=== PATIENT | male | born 1940 | race Caucasian/White ===

== ENCOUNTER → 2016-11-19 | Outpatient (CLI) | payer OTHER, BC ==
[2016-11-19 13:13] LABS: BILIRUBIN,TOTAL 0.8 mg/dL (0.3-1.2); CALCIUM 9.5 mg/dL (8.7-10.7); POTASSIUM 4.1 meq/L (3.8-5.2); TOTAL PROTEIN 6.7 g/dL (6.1-8.0)
== END ==
LOC: LAB 12:38
PROVIDERS: ATTEND Internal Medicine
DX: D45 Polycythemia vera (principal)
CPT/HCPCS: 36415; 80053

== ENCOUNTER → 2016-11-20 | Outpatient (CLI) | payer OTHER, BC ==
[2016-11-20 10:50] LABS: BASOPHILS % (AUTO) 0.8 % (0-1); EOSINOPHILS % (AUTO) 1.8 % (0-8); HEMATOCRIT 47.8 % (42.0-52.0); HEMOGLOBIN 16.3 g/dL (14.0-18.0); IMM GRAN % (AUTO) 0.3 % (0-5); IMM GRAN# (AUTO) 0.04 10*3/UL; LYMPHOCYTES # (AUTO) 2.14 10*3/uL; LYMPHOCYTES % (AUTO) 18.1 % (10-50); MEAN CORPUSCULAR HEMOGLOBIN 32.8 PG (27-31); MEAN CORPUSCULAR HGB CONC 34.1 g/dL (33-37); MEAN PLATELET VOLUME 9.9 FL (7.4-12.2); MONOCYTES # (AUTO) 0.99 10*3/UL (0.3-0.8); MONOCYTES % (AUTO) 8.4 % (5-15); NEUTROPHILS # (AUTO) 8.35 10*3/UL; NEUTROPHILS % (AUTO) 70.6 % (50-80); RDW COEFFICIENT OF VARIATION 15.9 % (11.5-14.5); RED BLOOD COUNT 4.97 10^6/uL (4.70-6.10); WHITE BLOOD COUNT 11.83 10^3/uL (4.8-10.8)
[2016-11-20 10:52] LABS: PLATELET MORPHOLOGY COMMENT NORMAL MORPHOLOGY (NORM)
== END ==
LOC: LAB 10:34
PROVIDERS: ATTEND Internal Medicine
DX: D45 Polycythemia vera (principal)
CPT/HCPCS: 36415; 85025

== ENCOUNTER → 2017-01-15 | Outpatient (CLI) | payer OTHER, BC ==
[2017-01-15 12:47] LABS: BASOPHILS % (AUTO) 0.9 % (0-1); EOSINOPHILS % (AUTO) 1.5 % (0-8); HEMATOCRIT 46.1 % (42.0-52.0); HEMOGLOBIN 15.7 g/dL (14.0-18.0); IMM GRAN % (AUTO) 0.4 % (0-5); IMM GRAN# (AUTO) 0.04 10*3/UL; LYMPHOCYTES # (AUTO) 1.94 10*3/uL; LYMPHOCYTES % (AUTO) 17.9 % (10-50); MEAN CORPUSCULAR HEMOGLOBIN 32.8 PG (27-31); MEAN CORPUSCULAR HGB CONC 34.1 g/dL (33-37); MEAN PLATELET VOLUME 9.6 FL (7.4-12.2); MONOCYTES % (AUTO) 6.5 % (5-15); NEUTROPHILS # (AUTO) 7.91 10*3/UL; NEUTROPHILS % (AUTO) 72.8 % (50-80); RDW COEFFICIENT OF VARIATION 16.6 % (11.5-14.5); RED BLOOD COUNT 4.78 10^6/uL (4.70-6.10); WHITE BLOOD COUNT 10.85 10^3/uL (4.8-10.8)
[2017-01-15 12:57] LABS: PLATELET MORPHOLOGY COMMENT NORMAL MORPHOLOGY (NORM)
== END ==
LOC: LAB 12:30
PROVIDERS: ATTEND Internal Medicine
DX: D45 Polycythemia vera (principal)
CPT/HCPCS: 36415; 82565; 85025

== ENCOUNTER → 2017-02-10 | Outpatient (CLI) | payer OTHER, BC | LOC: MMPC 09:00 | PROVIDERS: ATTEND Family Medicine | DX: E04.1 Nontoxic single thyroid nodule (principal); E78.5 Hyperlipidemia, unspecified; D72.829 Elevated white blood cell count, unspecified; D45 Polycythemia vera | CPT/HCPCS: 99213; G0463 ==

== ENCOUNTER → 2017-03-18 | Outpatient (CLI) | payer OTHER, BC ==
[2017-03-18 15:49] LABS: BASOPHILS % (AUTO) 0.9 % (0-1); EOSINOPHILS # (AUTO) 0.21 10*3/UL; EOSINOPHILS % (AUTO) 1.8 % (0-8); HEMATOCRIT 45.5 % (42.0-52.0); HEMOGLOBIN 15.4 g/dL (14.0-18.0); LYMPHOCYTES # (AUTO) 2.07 10*3/uL; MEAN CORPUSCULAR HEMOGLOBIN 32.8 PG (27-31); MEAN CORPUSCULAR HGB CONC 33.8 g/dL (33-37); MEAN PLATELET VOLUME 9.4 FL (7.4-12.2); MONOCYTES # (AUTO) 0.77 10*3/UL (0.3-0.8); MONOCYTES % (AUTO) 6.7 % (5-15); NEUTROPHILS # (AUTO) 8.32 10*3/UL; NEUTROPHILS % (AUTO) 72.3 % (50-80); RED BLOOD COUNT 4.69 10^6/uL (4.70-6.10)
[2017-03-18 16:07] LABS: PLATELET MORPHOLOGY COMMENT NORMAL MORPHOLOGY (NORM); RBC MORPHOLOGY COMMENT NORMAL MORPHOLOGY (NORM); WBC MORPHOLOGY COMMENT NORMAL MORPHOLOGY (NORM)
== END ==
LOC: LAB 15:32
PROVIDERS: ATTEND Internal Medicine
DX: D45 Polycythemia vera (principal)
CPT/HCPCS: 36415; 82565; 85025

== ENCOUNTER → 2017-03-27 | Outpatient (CLI) | payer OTHER, BC ==
[2017-03-27 08:05] LABS: BASOPHILS # (AUTO) 0.11 10*3/UL; BASOPHILS % (AUTO) 1.1 % (0-1); EOSINOPHILS # (AUTO) 0.19 10*3/UL; EOSINOPHILS % (AUTO) 1.8 % (0-8); HEMATOCRIT 48.1 % (42.0-52.0); HEMOGLOBIN 16.2 g/dL (14.0-18.0); LYMPHOCYTES # (AUTO) 1.71 10*3/uL; MEAN CORPUSCULAR HEMOGLOBIN 32.5 PG (27-31); MEAN CORPUSCULAR HGB CONC 33.7 g/dL (33-37); MEAN CORPUSCULAR VOLUME 96.6 FL (80-90); MEAN PLATELET VOLUME 9.7 FL (7.4-12.2); MONOCYTES # (AUTO) 0.75 10*3/UL (0.3-0.8); MONOCYTES % (AUTO) 7.2 % (5-15); NEUTROPHILS # (AUTO) 7.68 10*3/UL; NEUTROPHILS % (AUTO) 73.4 % (50-80); RED BLOOD COUNT 4.98 10^6/uL (4.70-6.10)
[2017-03-27 08:11] LABS: BUN/CREATININE RATIO 17.77 (6-20); CALCIUM 9.4 mg/dL (8.7-10.7); CHOL/HDL RATIO 2.95 RATIO (0-4.0); LDL CHOLESTEROL,CALCULATED 65.4 mg/dL; SERUM ALBUMIN 4.1 g/dL (3.5-4.8)
[2017-03-27 08:17] LABS: PLATELET MORPHOLOGY COMMENT NORMAL MORPHOLOGY (NORM); RBC MORPHOLOGY COMMENT NORMAL MORPHOLOGY (NORM); WBC MORPHOLOGY COMMENT NORMAL MORPHOLOGY (NORM)
== END ==
LOC: LAB 07:46
PROVIDERS: ATTEND Family Medicine
DX: D45 Polycythemia vera (principal); D72.829 Elevated white blood cell count, unspecified; E04.1 Nontoxic single thyroid nodule; E78.5 Hyperlipidemia, unspecified; I48.91 Unspecified atrial fibrillation; E55.9 Vitamin D deficiency, unspecified
CPT/HCPCS: 36415; 80053; 80061; 82306; 84443; 85025

== ENCOUNTER → 2017-05-20 | Outpatient (CLI) | payer OTHER, BC ==
[2017-05-20 16:48] LABS: BASOPHILS # (AUTO) 0.11 10*3/UL; EOSINOPHILS # (AUTO) 0.19 10*3/UL; EOSINOPHILS % (AUTO) 1.7 % (0-8); HEMATOCRIT 45.4 % (42.0-52.0); HEMOGLOBIN 15.3 g/dL (14.0-18.0); LYMPHOCYTES # (AUTO) 2.15 10*3/uL; MEAN CORPUSCULAR HEMOGLOBIN 32.8 PG (27-31); MEAN CORPUSCULAR HGB CONC 33.7 g/dL (33-37); MEAN CORPUSCULAR VOLUME 97.2 FL (80-90); MEAN PLATELET VOLUME 9.8 FL (7.4-12.2); MONOCYTES % (AUTO) 7.1 % (5-15); NEUTROPHILS # (AUTO) 7.93 10*3/UL; NEUTROPHILS % (AUTO) 70.7 % (50-80); RED BLOOD COUNT 4.67 10^6/uL (4.70-6.10)
[2017-05-20 16:51] LABS: PLATELET MORPHOLOGY COMMENT NORMAL MORPHOLOGY (NORM); RBC MORPHOLOGY COMMENT NORMAL MORPHOLOGY (NORM); WBC MORPHOLOGY COMMENT NORMAL MORPHOLOGY (NORM)
== END ==
LOC: LAB 16:30
PROVIDERS: ATTEND Internal Medicine
DX: D45 Polycythemia vera (principal)
CPT/HCPCS: 36415; 82565; 85025

== ENCOUNTER 2018-01-15 13:16 | Inpatient (IN) ==
[2018-01-15] MEDS ORDERED: MORPHINE SULFATE 4 MG/1 ML IVP ONE (13:35)
[2018-01-15] MEDS ORDERED: Sodium Chloride 0.9% 1,000 ML PRIMARY IV ONE (13:35)
[2018-01-15] MEDS ORDERED: ONDANSETRON 4 MG/2 ML VIAL IVP ONE (13:35)
--- NOTE | 2018-01-15 13:39 | PDOC ---
Abdomen/Flank HPI - General Chief Complaint: Abdomen Pain Stated Complaint: abdominal pain Date Seen by Provider: 01/15/18 Time Seen by Provider: 13:30 Source: POSITIVE: Patient, Spouse Exam Limitations: POSITIVE: No limitations Nurse's Notes Reviewed & Considered: Yes - History of Present Illness Initial Comments: This is a very pleasant, well-developed, well-nourished, 77-year-old male, complaining of left lower quadrant abdominal pain. Patient with sudden onset of left lower quadrant abdominal pain that began this morning. 2 days ago he had an episode of diarrhea, yesterday had no bowel movement then this morning he had a small bowel movement and a subsequent medium bowel movement that he reports had he not been close to the bathroom he would not have been able to contain. He denies any nausea or vomiting, no headache, no sore throat, no chest pain or shortness of breath, no hematuria or dysuria, he does have increased nocturia and weak urine stream. He denies any rashes, no myalgias or arthralgias. Patient does have a history of diverticulitis, 2 left inguinal hernia repairs, and a laparoscopic cholecystectomy. Patient has a pacemaker for atrial fibrillation and is currently on Coumadin. He states his INR yesterday was 2.5. Body Location Affected: REPORTS: Abdomen Timing: REPORTS: Abrupt Duration: <24 hours Severity: Moderate Quality: REPORTS: "Pain" Abdominal Pain Onset Location: REPORTS: LLQ Abdominal Pain Radiation: REPORTS: No radiation Context: REPORTS: None Modifying Factors: improves with: Nothing Associated Symptoms: DENIES: Denies symptoms, Back pain, Bloody Emesis, Chest pain, Coffee Grounds Emesis, Chills, Diaphoresis, Fever, Fatigue, Headache, Heartburn, Loss of Appetite, Nausea, Rash, Shortness of breath, Swelling/mass in abdomen, Syncope, Testicular Pain, Vomiting, Weakness, Grossly Bloody Diarrhea, Constipation, Diarrhea, Dysuria, Incontinent Stool, Incontinent Urine , Mucous Diarrhea, Difficulty Walking, Dizziness, Light Headedness, Numbness, Other Similar Symptoms Previously: No Recent Care Received: REPORTS: Denies Any Prior Injuries Related to Current Complaint?: No - Patient Home Medications Home Medications: Home Medications Calcium Citrate/Vitamin D3 [Citracal + D Caplet] 1 tab PO DAILY 12/11/12 Vitamin B Complex [B Complex] 1 tab PO QD 12/11/12 Hydroxyurea [Hydrea] 500 mg PO DAILY cap 03/11/14 Atorvastatin Calcium [Lipitor] 1 tab PO DAILY #90 tab 11/11/16 Warfarin Sodium 5 mg PO DAILY #108 tab 11/11/16 Pantoprazole Sodium [Protonix] 1 tab PO DAILY #90 tab 02/10/17 - Patient Allergies Allergies/Adverse Reactions: Allergies 3 Allergy/AdvReac Type Severity Reaction Status Date / Time No Known Allergies Allergy Verified 01/15/18 13:20 Past Medical History - heen HEENT History: Hard of Hearing Additional HEENT History: BILATERAL HEARING AIDES. Cardiovascular History: Hypertension, Arrhythmia, Pacemaker, Hyperlipidemia Additional Cardiovasular History: BRADYCARDIA. FIRST DEGREE A/V BLOCK. A FIB. LEFT VERTEBRAL ARTERY OCCLUSION 100%. PARTIAL OCCLUSION OF CAROTIDS Respiratory History: Denies History Gastrointestinal History: Diverticulitis Additional Gastrointestinal History: endoscope. 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 Psychiatric History: Denies History History of Sexually Transmitted Diseases: No Cancer History: Denies History History of MDRO: No History of Other Communicable Diseases: No Alcohol Use: Rarely In the Past 12 Months, Have Used or Abuse Any Substance: None Previous Surgical History: Yes Type / Date of Surgery: COLONOSCOPY/HEMORRHIOD REPAIR/PACEMAKER/LAMINECTOMY/ INGUINAL HERNIA REPAIR/PACEMAKER/TONSILLS/THYROID NODULE/TRANSESOPHAGEAL ECHO Anesthesia Reactions: No Malignant Hyperthermia: No Significant Family History: Heart disease, Cancer, Vascular disease Additional Family History: ALZHEIMER'S ROS - Limitations ROS Limitations: No Limitations Constitution: REPORTS: Denies Symptoms Cardiovascular: REPORTS: Denies Cardiac Symptoms Respiratory: REPORTS: Denies Resp Symptoms Neurological: REPORTS: Denies Neuro Symptoms Gastrointestinal: REPORTS: Abdominal Pain Endocrine: REPORTS: Denies Symptoms Musculoskeletal: REPORTS: Denies MS Symptoms Genitourinary: REPORTS: Denies Symptoms Eyes: REPORTS: Denies Symptoms ENT: REPORTS: Denies Symptoms Skin: REPORTS: Denies Skin Symptoms Lympathic: REPORTS: Denies Lympathic Symptoms Immunologic: POSITIVE: Denies Symptoms Psychiatric: POSITIVE: Denies Psych Symptoms Abdominal/Flank Pain PE - General Appearance General Appearance: POSITIVE: Alert, Cooperative, No Acute Distress, No Evidence of Trauma - HEENT HEENT: POSITIVE: Head Inspection Nml, Eyes Inspection Nml, Ears Inspection Nml, Nose Inspection Nml, Oral/Dental Inspect. Nml, Pharynx Inspect. Nml, PERRL, EOMI - Neck Neck: POSITIVE: Normal Inspection, No Apparent Injury - Respiratory Respiratory: POSITIVE: No Respiratory Distress, Breath Sounds Normal, Chest Non- Tender - Cardiovascular Cardiovascular: POSITIVE: Regular Rate and Rhythm, Heart Sounds Normal, Strong Pulses Peripheral Pulses: Radial (L): 4+ - Chest Chest: POSITIVE: Non Tender - Abdomen Abdomen: Soft: (All Quadrants), Normal Bowel Sounds: (All Quadrants), Denies Tenderness: (RLQ), (LUQ), (RUQ), No Splenomegaly: (All Quadrants), No Hepatomegaly: (All Quadrants), No Guarding: (All Quadrants), No Rebound: (All Quadrants), No Palpable Pulse: (All Quadrants), No Palpabale Mass: (All Quadrants), No Distention: (All Quadrants), No Rigidity: (All Quadrants), Tenderness Noted: (LLQ) - Back Back: POSITIVE: Normal Inspection - Skin Skin: POSITIVE: Intact, Normal For Race, Warm, Dry, No Rash - Extremities Extremity: Non-Tender: (All Extremities), Normal ROM: (All Extremities), Normal Inspection: (All Extremities), Pelvis Stable: (All Extremities) - Neurological Neurological: POSITIVE: Affect Apporpriate, Oriented X3, Motor Normal, Sensation Normal - Psychological Psychiatric: POSITIVE: Affect Appropriate, Mood Appropriate Abdomen Progress - Results Reviewed by me Xrays/CTs/US Reviewed by me: Yes Discussed with Radiologist: Yes Lab Results Reviewed by Me: Yes CBC and BMP: 01/15/18 13:35 01/15/18 14:00 - Patient's Progress Pain Medication Addressed: POSITIVE: Yes Re-examine Time: 15:48 Status: POSITIVE: Improved MDM / ED Course: Patient was evaluated, an IV started, blood drawn and sent to the lab for studies, radiographic studies were also obtained. Findings: CBC shows white count of 16-1/2. CMP is unremarkable, urinalysis is negative, CT scan of his abdomen shows left-sided colonic diverticulitis without perforation and without abscess. Assessment: Diverticulitis Plan IV Invanz and admission. - Consult Consult (If Yes, Name of Consulting MD & Time Called): Yes (Dr. Arias, [address] Pickard, 1550 hrs) Consulting MD will see pt:: POSITIVE: [facility] Admit Counseled: POSITIVE: Patient, Family, RE: Lab Results, RE: Radiology Results, RE : DX Patient Care Time - Estimated PCT Patient Care Time (In Minutes): 60 Vital Signs - VS Reviewed Vital Signs Reviewed: Yes Discharge Clinical Impression: Diverticulitis large intestine Discharge Disposition: Admit to Inpatient Condition: Stable Date Decision to Admit to Inpatient: 01/15/18 Time Decision to Admit to Inpatient: 15:45
[2018-01-15 13:59] LABS: BASOPHILS # (AUTO) 0.07 10*3/UL; BASOPHILS % (AUTO) 0.4 % (0-1); EOSINOPHILS # (AUTO) 0.08 10*3/UL; EOSINOPHILS % (AUTO) 0.5 % (0-8); Hematocrit [HCT] 47.2 % (42.0-52.0); Hemoglobin [HGB] 16.2 g/dL (14.0-18.0); LYMPHOCYTES # (AUTO) 1.25 10*3/uL; MEAN CORPUSCULAR HEMOGLOBIN 33.2 PG (27-31); MEAN CORPUSCULAR HGB CONC 34.3 g/dL (33-37); MEAN CORPUSCULAR VOLUME 96.7 FL (80-90); MONOCYTES # (AUTO) 1.08 10*3/UL (0.3-0.8); MONOCYTES % (AUTO) 6.7 % (5-15); NEUTROPHILS % (AUTO) 84.4 % (50-80); RED BLOOD COUNT 4.88 10^6/uL (4.70-6.10)
[2018-01-15 14:08] LABS: PLATELET MORPHOLOGY COMMENT NORMAL MORPHOLOGY (NORM); RBC MORPHOLOGY COMMENT NORMAL MORPHOLOGY (NORM); WBC MORPHOLOGY COMMENT NORMAL MORPHOLOGY (NORM)
[2018-01-15 14:12] LABS: BLOOD UREA NITROGEN 16 mg/dL (7-22); BUN/CREATININE RATIO 17.77 (6-20); SERUM ALBUMIN 4.8 g/dL (3.5-4.8)
[2018-01-15 14:41] LABS: BILIRUBIN,URINE SMALL (NEG); CLARITY,URINE CLEAR (CLEAR); COLOR,URINE YELLOW (Y); GLUCOSE, URINE (UA) NEGATIVE (NEG); OCCULT BLOOD,URINE NEGATIVE (NEG); PROTEIN,URINE 30 mg/dl (NEG); UROBILINOGEN,URINE 0.2 EU/dL (0.2)
[2018-01-15 14:48] LABS: URINE SAMPLE TYPE CLEAN CATCH URINE
[2018-01-15] MEDS ORDERED: Piperacillin/Tazobactam Inj 3.375 GM in Sodium Chloride 0.9% 100 ML IV ONE (15:41)
[2018-01-15 15:43] LABS: Erythrocyte Sediment Rate 2 MM/HR (0-15)
[2018-01-15] MEDS ORDERED: Ertapenem Inj 1 GM in Sodium Chloride 0.9% 100 ML IV ONE (15:44)
--- NOTE | 2018-01-15 15:47 | DI ---
CT Abdomen/Pelvis W Contrast,01/15/2018 1:35 PM: Clinical History: Left lower quadrant pain Previous Exam: January 19, 2016 Findings: Multiple helically acquired CT images are obtained through the abdomen and pelvis following intraveno us administration of contrast. There is mild prosthetic hypertrophy causing some impression on the urinary bladder neck. Multiple colonic diverticula are noted and there is inflammatory changes surrounding one of the diver ticula within the left lower quadrant at the descending colon as it becomes the sigmoid colon. The appendix is normal. There is no free air nor free fluid. A few peripheral vascular calcifications are seen. The lung base s are clear. Patient is status post cholecystectomy. The spleen, adrenals and pancreas are unremarkable. There is no free air nor abscess. There is loss of intervertebral disc height at the L5/S1 level. Impression: Acute sigmoid diverticulitis without evidence of perforation or abscess.
--- NOTE | 2018-01-15 16:28 | CONSULT ---
Consult Note - Consult Consult Date: 01/15/18 Reason for Consult: PreOp Consulation : General Surgery Requesting Physician: Dr. Brandt Primary Care Provider: Jg Johnson MD - History of Present Illness History of Present Illness: This is 77-year-old gentleman has a day and a half history of left lower quadrant abdominal pain. He states that the pain started yesterday. And today discuss little bit worse. It is hurting him when he hit bumps on the tractor. Patient actually did his normal range work today. He denies any fevers or chills. No hematochezia hematemesis or melena. He has not had a change in bowel habits. Patient was noted to have a 16,[address] scan showed diverticulitis with no free perforation. There is localized stranding in the mesenteric fat. Review of Systems - Constitutional Constitutional: REPORTS: General Health Fair - Integumentary Integumentary: REPORTS: Negative System Review - Eye Exam Eye Exam: REPORTS: Negative System Review - Mouth/Throat Mouth/Throat Exam: REPORTS: Negative System Review - Respiratory Respiratory: REPORTS: Negative System Review - Cardiovascular Cardiovascular: REPORTS: Negative System Review - Genitourinary Genitourinary: REPORTS: Negative System Review - Musculoskeletal Musculoskeletal: REPORTS: Negative System Review - Hematlogic / Lymphatic Hematologic / Lymphatic: REPORTS: See HPI (History of polycythemia) - Neurological Neurologic: REPORTS: Negative System Review - Psychiatric Psychiatric: REPORTS: Negative System Review Past Medical History Medical History: Diverticulosis, polycythemia, coronary artery disease, chronic anticoagulation Surgical History: Cholecystectomy, thyroid nodule removed, inguinal hernia repair, colonoscopies Tobacco Use: Never Smoker In the Past 12 Months, Have Used or Abuse Any of the Following Substance: None Medication / Allergies Home Medications: Home Medications 3 Medication Instructions Recorded Confirmed Type Calcium Citrate/Vitamin D3 1 tab PO QD 12/11/12 01/15/18 History [Citracal + D Caplet] Vitamin B Complex [B Complex] 1 tab PO QD 12/11/12 01/15/18 History Hydroxyurea [Hydrea] 500 mg PO QD cap 03/11/14 01/15/18 History Atorvastatin Calcium [Lipitor] 1 tab PO DAILY #90 tab 11/11/16 01/15/18 Rx Warfarin Sodium 5 mg PO DAILY #108 tab 11/11/16 01/15/18 Rx Pantoprazole Sodium [Protonix] 1 tab PO DAILY #90 tab 02/10/17 01/15/18 Rx Allergies/Adverse Reactions: Allergies 3 Allergy/AdvReac Type Severity Reaction Status Date / Time No Known Allergies Allergy Verified 01/15/18 13:20 Results - Labs CBC and BMP: 01/15/18 13:35 01/15/18 14:00 Exam - Vitals Vital Signs: Vital Signs Temperature 97.8 F Pulse Rate [Pulse Oximeter] 76 Respiratory Rate 18 Blood Pressure [Left Arm] 129/93 Pulse Ox 94 Oxygen Delivery Method Room Air Height 6 ft 2 in Weight 195 lb - General General Appearance: No Acute Distress, Cooperative - Eye Eye Exam: POSITIVE: PERRL - Respiratory Respiratory Exam: POSITIVE: Clear to Auscultation - Bilaterally, Breathing Non Labored - Cardiovascular Cardiovascular Exam: POSITIVE: RRR - GI/Abdominal GI/Abdominal Exam: POSITIVE: Normal Bowel Sounds, Non Distended, Soft, No Hepatomegaly, No Splenomegaly Additional GI/Abdominal Exam Details: Patient has left lower quadrant pain with no rebound or rigidity. - Rectal Rectal Exam: POSITIVE: Deferred Assessment and Plan - Patient Problems (1) Diverticulitis large intestine Current Visit: Yes Status: Acute Code(s): K57.32 - Diverticulitis of large intestine without perforation or abscess without bleeding - Assessment / Plan Additional Assessment/Plan Details: I think the patient needs be placed on IV antibiotics. Clear liquid diet. Will check an INR. I do not think he has acute surgical abdomen would not recommend taken in surgery at this time. I have talked to the ER doctor Dr. Adan Richardson prior to seeing the patient and Dr. Brandt after I saw the patient.
[2018-01-15] MEDS ORDERED: LIDOCAINE W/ SODIUM BICARB 0.5 ML SYR SUBD PRN (16:34)
[2018-01-15] MEDS ORDERED: NORMAL SALINE 10 ML SYRINGE FLUSH IVP PRN (16:34)
[2018-01-15] MEDS ORDERED: ONDANSETRON 4 MG/2 ML VIAL IVP PRN (16:34)
[2018-01-15] MEDS: Sodium Chloride 0.9% 1,000 ML PRIMARY IV SCH (18:37)
--- NOTE | 2018-01-15 19:47 | PDOC ---
HPI - History of Present Illness History of Present Illness: This very nice 77-year-old gentleman who presents to the ER with left lower quadrant pain which started yesterday denies any fever or chills in the ER CT scan of the abdomen and pelvis showed the acute diverticulitis with no perforation patient was admitted for IV antibiotics and hydration general surgery was consult patient will be on a clear liquid diet Past Medical History Medical History: Diverticulosis, polycythemia, coronary artery disease, chronic anticoagulation Surgical History: Cholecystectomy, thyroid nodule removed, inguinal hernia repair, colonoscopies Tobacco Use: Never Smoker In the Past 12 Months, Have Used or Abuse Any of the Following Substance: None Medication / Allergies Home Medications: Home Medications 3 Medication Instructions Recorded Confirmed Type Calcium Citrate/Vitamin D3 1 tab PO DAILY 12/11/12 01/15/18 History [Citracal + D Caplet] Vitamin B Complex [B Complex] 1 tab PO DAILY 12/11/12 01/15/18 History Hydroxyurea [Hydrea] 500 mg PO DAILY cap 03/11/14 01/15/18 History Atorvastatin Calcium [Lipitor] 1 tab PO DAILY #90 tab 11/11/16 01/15/18 Rx Warfarin Sodium 5 mg PO DAILY #108 tab 11/11/16 01/15/18 Rx Pantoprazole Sodium [Protonix] 1 tab PO DAILY #90 tab 02/10/17 01/15/18 Rx Allergies/Adverse Reactions: Allergies 3 Allergy/AdvReac Type Severity Reaction Status Date / Time No Known Allergies Allergy Verified 01/15/18 13:20 Review of Systems - Review of Systems All Systems: Reviewed & No Additional Complaints Except as Stated - Respiratory Respiratory: DENIES: Negative System Review, Cough, Sputum, Dyspnea At Rest, Dyspnea with Exertion, Pleuritic Pain, Hemoptysis, Wheezing, Other, See HPI - Cardiovascular Cardiovascular: DENIES: Negative System Review, Chest Pain, Edema, Syncope, Palpitations, Orthopnea, Paroxysmal Nocturnal Dyspnea, Other, See HPI - Gastrointestinal Gastrointestinal / Abdominal: REPORTS: Abdominal Pain. DENIES: Nausea, Vomiting , Diarrhea Exam - Vitals Vital Signs: Vital Signs Respiratory Rate 18 Oxygen Flow Rate 2 Oxygen Delivery Method Nasal Cannula Height 6 ft 2 in Weight 185 lb 9.6 oz - General General Appearance: No Acute Distress, Cooperative - Head Head Exam: Normal Inspection, Normocephalic, Atraumatic - Eye Eye Exam: POSITIVE: Normal Appearance, PERRL, EOMI, No Scleral Icterus - ENT ENT Exam: POSITIVE: Normal Exam, Normal External Ear Exam, Normal Oropharynx, TM 's Normal Bilaterally, Mucous Membranes Moist - Neck Neck Exam: Normal Inspection, Full ROM, No Tenderness, No Lymphadenopathy, No Thyromegaly, JVP is not Raised - Respiratory Respiratory Exam: POSITIVE: Clear to Auscultation - Bilaterally, Breathing Non Labored, Normal To Percussion, Normal to Percussion and Palpation - Cardiovascular Cardiovascular Exam: POSITIVE: RRR, No Murmur, No Clicks, No Gallops, No Rubs, PMI Non-Displaced - GI/Abdominal Additional GI/Abdominal Exam Details: Left lower quadrant pain on palpation no guarding or rebound - Extremities Extremities Exam: POSITIVE: No Clubbing Present, No Edema Present, No Cyanosis Present Results - Labs CBC and BMP: 01/15/18 13:35 01/15/18 14:00 Assessment and Plan - Patient Problems (1) Diverticulitis large intestine Current Visit: Yes Status: Acute Comment: Diverticulitis continue 1 g of Invanz daily clear liquid diet general surgery was consult did hopefully the patient will get better here in the next few days. Anticoagulation on hold at present time in case of a surgical need we will do heparin subcutaneous for DVT prophylaxis Code(s): K57.32 - Diverticulitis of large intestine without perforation or abscess without bleeding
[2018-01-15] MEDS: HEPARIN 5000 UNIT/1 ML SUBCUT SCH (20:10)
[2018-01-15] MEDS ORDERED: HYDROXYUREA 500 MG PO SCH (21:00)
[2018-01-15] MEDS ORDERED: ATORVASTATIN 20 MG TABLET PO SCH (21:50)
[2018-01-16] MEDS: HEPARIN 5000 UNIT/1 ML SUBCUT SCH ×3 (05:00→20:50)
[2018-01-16] MEDS: Sodium Chloride 0.9% 1,000 ML PRIMARY IV SCH ×3 (05:00→20:49)
[2018-01-16 05:09] LABS: BASOPHILS # (AUTO) 0.11 10*3/UL; BASOPHILS % (AUTO) 0.8 % (0-1); EOSINOPHILS # (AUTO) 0.11 10*3/UL; EOSINOPHILS % (AUTO) 0.8 % (0-8); Hematocrit [HCT] 45.4 % (42.0-52.0); Hemoglobin [HGB] 14.9 g/dL (14.0-18.0); LYMPHOCYTES # (AUTO) 1.92 10*3/uL; MEAN CORPUSCULAR HEMOGLOBIN 32.7 PG (27-31); MEAN CORPUSCULAR HGB CONC 32.8 g/dL (33-37); MEAN CORPUSCULAR VOLUME 99.6 FL (80-90); MEAN PLATELET VOLUME 10.4 FL (7.4-12.2); MONOCYTES # (AUTO) 1.02 10*3/UL (0.3-0.8); MONOCYTES % (AUTO) 7.8 % (5-15); NEUTROPHILS # (AUTO) 9.85 10*3/UL; NEUTROPHILS % (AUTO) 75.6 % (50-80); RED BLOOD COUNT 4.56 10^6/uL (4.70-6.10)
[2018-01-16 05:10] LABS: PLATELET MORPHOLOGY COMMENT NORMAL MORPHOLOGY (NORM); RBC MORPHOLOGY COMMENT NORMAL MORPHOLOGY (NORM); WBC MORPHOLOGY COMMENT NORMAL MORPHOLOGY (NORM)
[2018-01-16 05:20] LABS: BLOOD UREA NITROGEN 15 mg/dL (7-22); BUN/CREATININE RATIO 16.66 (6-20); LIPASE 48 IU/L (23-300); SERUM ALBUMIN 3.8 g/dL (3.5-4.8)
[2018-01-16] MEDS: PANTOPRAZOLE 40 MG TABLET PO SCH (06:22)
[2018-01-16] MEDS: Calcium/Vit D 600mg/400u Tab 1 TAB TABLET PO SCH (08:25)
[2018-01-16] MEDS ORDERED: HYDROXYUREA 500 MG PO SCH ×2 (09:00→21:00)
--- NOTE | 2018-01-16 11:06 | PDOC(PROG) ---
Date and Time of Service: 01/16/2018 at 1110 Interval History: Patient states he feels a lot better. Had a large bowel movement. Objective : Data - Labs CBC and BMP: 01/16/18 04:24 01/16/18 04:24 - Vital Signs Vital Signs and I&O: Vital Signs - Last Taken Temperature 97.8 F 01/16/18 07:21 Pulse Rate 71 01/16/18 07:21 Respiratory Rate 18 01/16/18 07:21 Blood Pressure 138/64 01/16/18 07:21 Pulse Ox 94 01/16/18 07:21 Intake and Output (24hr x 4 totals) 01/14/18 01/15/18 01/16/18 01/17/18 05:59 05:59 05:59 05:59 Intake Total 930 / 2030 600 / 600 Output Total 400 / 400 125 / 125 Balance 530 / 1630 475 / 475 Objective : Exam - General General Appearance: No Acute Distress - GI/Abdominal GI/Abdominal Exam: Normal Bowel Sounds, Non Tender, Non Distended, Soft Assessment and Plan - Patient Problems (1) Diverticulitis large intestine Current Visit: Yes Status: Acute Code(s): K57.32 - Diverticulitis of large intestine without perforation or abscess without bleeding - Assessment / Plan Additional Assessment/Plan Details: We'll continue IV antibiotics until patient white count normalizes. When his pain is better in normalizes white count he can be switched to oral Augmentin 875 twice a day. Like him on antibiotics for at least 2 weeks. Would keep him on clear liquid diet today and advance to a low fiber diet starting tomorrow
--- NOTE | 2018-01-16 12:02 | PDOC(PROG) ---
Interval History: Patient is doing much better today pain is much less he did have a bowel movement Objective : Data - Labs CBC and BMP: 01/16/18 04:24 01/16/18 04:24 Objective : Exam - General General Appearance: Cooperative - Respiratory Respiratory Exam: Clear to Auscultation - Bilaterally, Breathing Non Labored, Normal To Percussion, Normal to Percussion and Palpation - Cardiovascular Cardiovascular Exam: RRR, No Murmur, No Clicks, No Gallops, No Rubs, PMI Non- Displaced - GI/Abdominal GI/Abdominal Exam: Normal Bowel Sounds, Non Tender, Non Distended, Soft, No Masses, No Hepatomegaly, No Splenomegaly, No Organomegaly - Rectal Additional Rectal Exam Details: Still some left lower quadrant pain much less than yesterday but still present - Extremities Extremities Exam: Normal Capillary Refill, No Clubbing Present, No Edema Present Assessment and Plan - Patient Problems (1) Diverticulitis large intestine Current Visit: Yes Status: Acute Comment: Continue IV antibiotics still a little tender in the left lower quadrant once pain is resolved I will stop IV and start by mouth in the form of Augmentin for a total 14 days as requested by the general surgeon and follow-up with Dr. Chapman Code(s): K57.32 - Diverticulitis of large intestine without perforation or abscess without bleeding
[2018-01-16] MEDS ORDERED: Ertapenem Inj 1 GM in Sodium Chloride 0.9% 100 ML IV SCH (17:00)
[2018-01-16] MEDS ORDERED: HYDROXYUREA 1000 MG PO SCH (21:00)
[2018-01-16] MEDS ORDERED: ATORVASTATIN 20 MG TABLET PO SCH ×2 (21:00)
[2018-01-16 21:36] VITALS: O2SAT 95
[2018-01-17] MEDS: HEPARIN 5000 UNIT/1 ML SUBCUT SCH (04:55)
[2018-01-17 05:24] LABS: BASOPHILS # (AUTO) 0.08 10*3/UL; BASOPHILS % (AUTO) 0.8 % (0-1); EOSINOPHILS # (AUTO) 0.15 10*3/UL; EOSINOPHILS % (AUTO) 1.5 % (0-8); Hematocrit [HCT] 42.6 % (42.0-52.0); Hemoglobin [HGB] 14.8 g/dL (14.0-18.0); LYMPHOCYTES # (AUTO) 1.24 10*3/uL; MEAN CORPUSCULAR HEMOGLOBIN 33.6 PG (27-31); MEAN CORPUSCULAR HGB CONC 34.7 g/dL (33-37); MEAN CORPUSCULAR VOLUME 96.6 FL (80-90); MEAN PLATELET VOLUME 10.3 FL (7.4-12.2); MONOCYTES # (AUTO) 0.75 10*3/UL (0.3-0.8); MONOCYTES % (AUTO) 7.6 % (5-15); NEUTROPHILS # (AUTO) 7.57 10*3/UL; NEUTROPHILS % (AUTO) 77.3 % (50-80); RED BLOOD COUNT 4.41 10^6/uL (4.70-6.10)
[2018-01-17 05:31] LABS: PLATELET MORPHOLOGY COMMENT NORMAL MORPHOLOGY (NORM); RBC MORPHOLOGY COMMENT NORMAL MORPHOLOGY (NORM); WBC MORPHOLOGY COMMENT NORMAL MORPHOLOGY (NORM)
[2018-01-17] MEDS: Sodium Chloride 0.9% 1,000 ML PRIMARY IV SCH (06:11)
[2018-01-17] MEDS: PANTOPRAZOLE 40 MG TABLET PO SCH (07:00)
[2018-01-17] MEDS: Calcium/Vit D 600mg/400u Tab 1 TAB TABLET PO SCH (08:30)
--- NOTE | 2018-01-17 08:55 | DCSUMMARY ---
Hospitalization Summary Hospital Course: Final Discharge Diagnosis: Current Visit Problems Problem Status Onset Code Diverticulitis large intestine Acute K57.32 Diagnostic Data, Laboratory Data, and Procedures of Signifigance: CBC and BMP 01/17/18 04:50 01/16/18 04:24 History and Physical pertinent to Admission: Course of Hospitalization: This very nice 77-year-old gentleman comes in with left lower quadrant pain and diagnosed with the diverticulitis was treated with IV Invanz during his hospital stay with resolution of his white count and pain. He will be discharged home in stable and improved condition for a total of 7 days of antibiotics Augmentin prescription was given to follow-up with the general surgery for possible colonoscopy. When he came in the hospital he was subtherapeutic on his Coumadin he will resume the Coumadin and have PT/INR clinic adjusted accordingly he does have his own testing strips at home and has a follow-up with his primary care physician On the date of discharge, the patient was examined: Gen.: No acute distress, alert, nontoxic Heart: Regular rate and rhythm, no murmurs, clicks, gallops, or rubs Lungs: Clear to auscultation bilaterally, breathing is nonlabored Abdomen/GI: Normal tones on auscultation, soft, nontender, nondistended Musculoskeletal/extremities: No clubbing, cyanosis, or edema Vitals reviewed and are listed below Vital Signs (24 hrs) Temp Pulse Resp BP Pulse Ox 01/17/18 09:00 97.9 F 77 16 147/68 95 01/17/18 04:20 97.0 F 71 18 168/78 95 01/17/18 01:00 97.5 F 87 20 163/84 95 01/16/18 21:00 97.1 F 72 18 167/85 95 01/16/18 19:00 72 18 01/16/18 16:41 97 F 97 18 165/80 92 01/16/18 11:26 97.6 F 94 18 133/88 95 Assessment and Plan: 1. As per discharge assessments above 2. Disposition: Home 3. Condition on discharge, stable and improved. 4. Diet: Clear Liquid and advance as tolerated 5. Activities: resume normal activities 6. Follow-Up: 1. PCP and Dr. Chapman general surgery for possible colonoscopy 2. 7. Medications at the Time of Discharge: Home Medications 3 Medication Instructions Recorded Confirmed Type Calcium Citrate/Vitamin D3 1 tab PO DAILY 12/11/12 01/15/18 History [Citracal + D Caplet] Vitamin B Complex [B Complex] 1 tab PO DAILY 12/11/12 01/15/18 History Hydroxyurea [Hydrea] 500 mg PO BEDTIME cap 03/11/14 01/16/18 History Atorvastatin Calcium [Lipitor] 1 tab PO DAILY #90 tab 11/11/16 01/15/18 Rx Warfarin Sodium 5 mg PO DAILY #108 tab 11/11/16 01/15/18 Rx Pantoprazole Sodium [Protonix] 1 tab PO DAILY #90 tab 02/10/17 01/15/18 Rx Amoxicillin/Potassium Clav 1 ea PO BID #14 tab 01/17/18 Rx [Augmentin 875-125 Tablet] Vitamin B Complex [B Complex] 1 tab PO DAILY 01/17/18 Rx 8. Time, care, counseling and coordination of care for this discharge is greater than 30 minutes. Exam - Vitals Vital Signs: Vital Signs Temperature 97.0 F Temperature Source Temporal Artery Scan Pulse Rate [Pulse Oximeter] 71 Respiratory Rate 18 Blood Pressure [Left Arm] 168/78 Pulse Ox 95 Oxygen Flow Rate 2 Oxygen Delivery Method Room Air Height 6 ft 2 in Weight 187 lb 6.4 oz Patient Problems - Patient Problem List (1) Diverticulitis large intestine Current Visit: Yes Status: Acute Code(s): K57.32 - Diverticulitis of large intestine without perforation or abscess without bleeding Category: Medical
[2018-01-17 09:23] VITALS: BP 147/68; RESP 16; TEMP 97.9
[2018-01-17] MEDS: Apixaban Tab 2.5 MG TABLET PO ONE ×2 (12:04→12:08)
== END 2018-01-17 12:15 | disposition home or self-care (01) | DRG 392 ==
LOC: ER 13:16 → MED/SURG 16:26
PROVIDERS: ADMIT Internal Medicine; ATTEND Internal Medicine